=== PATIENT | female | born 1995 | race Caucasian/White ===

== ENCOUNTER → 2023-08-10 11:41 | Outpatient (CLI) | payer BC, SELFPAY ==
--- NOTE | ~2023-08-10 | US_ITS ---
EXAMINATION: US OB <=14 wk fetus w TV DATE: 08/10/2023 12:20 INDICATION: First trimester spotting. TECHNIQUE: Real-time transabdominal and transvaginal pelvic ultrasound was performed. COMPARISON: None. FINDINGS: TRANSABDOMINAL ULTRASOUND: The uterus measures 7.6 x 4.8 x 5.4 cm. TRANSVAGINAL ULTRASOUND: The endometrial complex measures 7 mm in thickness. There is no visible intr auterine gestational sac. The right ovary measures 3.9 x 1.9 x 3.1 cm. The left ovary measures 3.0 x 2.7 x 1.8 cm. There is no free fluid in the pelvis. IMPRESSION: 1. No visible intrauterine gestational sac, which may be normal in early . Spontaneous abor tion and ectopic are not excluded. Serial beta-hCGs are recommended. Reviewed, dictated and finalized at location E. GER SUSTAINABILITY IMPRESSION: 1. No visible intrauterine gestational sac, which may be normal in early pregn axel. Spontaneous and ectopic are not excluded. Serial beta- hCGs are recommended.
== END ==
PROVIDERS: PCP Obstetrics & Gynecology Gynecology; Visit Provider Obstetrics & Gynecology Gynecology
DX: O26.851 Spotting complicating pregnancy, first trimester (principal); Z3A.00 Weeks of gestation of pregnancy not specified
CPT/HCPCS: 76801; 76817

== ENCOUNTER 2023-08-13 07:48 | Outpatient (CLI) | payer BC, SELFPAY ==
[2023-08-13 08:33] LABS: Beta HCG Quantitative 10.11 mIU/ML
== END 2023-08-13 07:49 | disposition home or self-care (01) ==
PROVIDERS: PCP Obstetrics & Gynecology Gynecology; Visit Provider Obstetrics & Gynecology Gynecology
DX: O03.9 Complete or unspecified spontaneous abortion without complication (principal)
CPT/HCPCS: 36415; 84702; 86850; 86900; 86901

== ENCOUNTER 2023-12-05 08:26 | Outpatient (CLI) | payer BC, SELFPAY ==
--- NOTE | ~2023-12-05 | US_ITS ---
EXAMINATION: US OB transvaginal DATE: 12/05/2023 09:01 INDICATION: Prior spontaneous TECHNIQUE: Real-time pelvic ultrasound utilizing both a transvaginal and transabdominal probe was pe rformed. The interpreting radiologist was not present for the study. COMPARISON: None. FINDINGS: The uterus measures 10.3 x 6.0 x 6.5 cm. There is an intrauterine gestational sac. A yolk sac and fe christopher pole are identified. The crown rump length measures 8 mm, which correlates with an estimated gest ational age of 6 weeks and 5 days. heart motion is identified measuring 134 beats per minute (b pm) by M-mode Doppler. Couple small anechoic nabothian cysts at the cervix. The right ovary measures 4.2 x 2.4 x 3.8 cm. And 2.2 cm anechoic right ovarian cyst. The left ovary m easures 4.5 x 2.7 x 2.3 cm. There is no free fluid in the pelvis. IMPRESSION: 1. Single living fetus with heart rate of 134 bpm. 2. Gestational age by ultrasound of 6 weeks 5 day(s) +/- 4 day(s) with ultrasound estimated date of delivery ([facility]ICKIE) of 07/25/2024. Reviewed, dictated and finalized at location B. IMPRESSION: 1. Single living fetus with heart rate of 134 bpm. 2. Gestational age by ultrasound of 6 weeks 5 day(s) +/- 4 day(s) with ultraso und estimated date of delivery (VICKIE) of 07/25/2024.
== END 2023-12-05 08:27 ==
PROVIDERS: PCP Obstetrics & Gynecology Gynecology; Visit Provider Obstetrics & Gynecology Gynecology
DX: O26.21 Pregnancy care for patient with recurrent pregnancy loss, first trimester (principal); Z3A.00 Weeks of gestation of pregnancy not specified
CPT/HCPCS: 76817

== ENCOUNTER 2024-01-20 14:56 | Emergency (ER) | payer BC, SELFPAY ==
--- NOTE | ~2024-01-20 | US_ITS ---
LEFT LOWER EXTREMITY VENOUS ULTRASOUND Ordering provider: Trudy Diaz PA-C History: . pain in posterior thigh, 13 weeks . Comparison: None. FINDINGS: --COMMON FEMORAL: Patent and free of thrombus. Normal compressibility, phasic flow and augmentation. --PROXIMAL SUPERFICIAL FEMORAL: Patent and free of thrombus. Normal compressibility, phasic flow and augmentation. --DISTAL SUPERFICIAL FEMORAL: Patent and free of thrombus. Normal compressibility, phasic flow and au gmentation. --POPLITEAL: Patent and free of thrombus. Normal compressibility, phasic flow and augmentation. --POSTERIOR TIBIAL: Patent and free of thrombus. Normal compressibility, phasic flow and augmentation . IMPRESSION: Negative left lower extremity venous US. No deep vein thrombosis. Reviewed, dictated and finalized at location A.
[2024-01-20 14:57] VITALS: BP 122/69; PULSE 84; RESP 20; TEMP 36.4; O2SAT 100
--- NOTE | 2024-01-20 15:00 | ED.EXTPRO ---
HPI - Extremity Problem General Chief complaint: Extremity Problem,Nontraumatic Stated complaint: dvt r/o on L leg Time Seen by Provider: 01/20/24 15:59 Focused HPI:28-year-old female with reported history of cavernous hemangioma presents to the emergency department for pain to her posterior left thigh for approximately 1 week. Patient is currently 13 weeks and notified her OBGYN, , and was advised to come to the emergency department for further evaluation due to concerns for a DVT. The patient denies injury trauma to this area, overlying skin changes including bug bite, cellulitis or bruising. She denies history of DVT. She denies abdominal pain, vaginal bleeding or leakage of fluids. States her has been uncomplicated thus far. GENERAL: Well-appearing, well-nourished, and in no acute distress. HEAD: Normocephalic, atraumatic. CHEST: Clear to auscultation. ?No respiratory distress. HEART: Regular rate and rhythm.? NEURO: ?Alert and oriented x3. Patient screened in triage and initial orders placed.? ?Additional care and disposition to be based upon?diagnostic testing and treatment. History of Present Illness HPI Narrative: 28-year-old female with reported history of cavernous hemangioma presents to the emergency department for pain to her posterior left thigh for approximately 1 week. Patient is currently 13 weeks and notified her OBGYN, , and was advised to come to the emergency department for further evaluation due to concerns for a DVT. The patient denies injury trauma to this area, overlying skin changes including bug bite, cellulitis or bruising. She denies history of DVT. She denies abdominal pain, vaginal bleeding or leakage of fluids. States her has been uncomplicated thus far. Related Data Allergies Allergy/AdvReac Type Severity Reaction Status Date / Time amoxicillin Allergy Rash Verified 01/20/24 15:00 Review of Systems Review of Systems: CONSTITUTIONAL: Denies fever, chills, or sweats. EYES: Denies visual changes, redness, or discharge. ENT: Denies rhinorrhea, congestion, sore throat, or otalgia. CARDIOVASCULAR: Denies chest pain, palpitations, or edema. RESPIRATORY: Denies cough or dyspnea. GASTROINTESTINAL: Denies abdominal pain, nausea, vomiting, or diarrhea. GENITOURINARY: Denies dysuria or hematuria. SKIN: Denies rash or itching. MUSCULOSKELETAL: See HPI. NEUROLOGIC: Denies headache, numbness, or weakness. PSYCHIATRIC: Denies anxiety or depression. Exam Narrative: GENERAL: Well-appearing, well-nourished, and in no acute distress. HEAD: Normocephalic, atraumatic. NECK: Supple. CHEST: Clear to auscultation. No respiratory distress. HEART: Regular rate and rhythm. No murmur heard. Normal peripheral pulses. ABDOMEN: Soft, nontender, nondistended, normal active bowel sounds. EXTREMITIES: mild tenderness to the posterior lateral aspect of the left thigh. No skin changes including lesions, erythema, ecchymosis, nodules, areas of fluctuation or induration. No palpable cord. Remainder of lower extremity is unremarkable. No edema. DP pulse 2 +. Sensation intact. SKIN: Warm, dry, no rash. NEURO: No focal deficits. Alert and oriented x3 Course Vital Signs Vital signs: Vital Signs Temperature 97.6 F 01/20/24 14:57 Pulse Rate 84 01/20/24 14:57 Respiratory Rate 20 01/20/24 14:57 Blood Pressure 122/69 01/20/24 14:57 Pulse Oximetry 100 01/20/24 14:57 Oxygen Delivery Room Air 01/20/24 14:57 Temperature 97.6 F 01/20/24 14:57 Pulse Rate 84 01/20/24 14:57 Respiratory Rate 20 01/20/24 14:57 Blood Pressure 122/69 01/20/24 14:57 Pulse Oximetry 100 01/20/24 14:57 Oxygen Delivery Room Air 01/20/24 14:57 MDM - Extremity (Nontraumatic) MDM Narrative Medical decision making narrative: 28-year-old female who is , currently 13 weeks presents to emergency department for a focal area of
[2024-01-20 15:16] LABS: Basophils Percent Auto 0.3 % (0.2-1.2); Eosinophils Percent Auto 0.4 % (0-4.4); Hematocrit 39.1 % (37.0-47.0); Hemoglobin 13.7 g/dL (12.0-15.0); Immature Granulocyte Absolute 0.02 K/mm3 (0.00-0.031); Immature Granulocyte Percent A 0.2 % (0-0.5); Lymphocytes Absolute Auto 1.64 K/mm3 (0.9-3.2); Lymphocytes Percent Auto 17.8 % (18.3-44.2); Mean Corpuscular Hemoglobin 30.5 pg (26-34); Mean Corpuscular Volume 87.1 fl (80-100); Mean Platelet Volume 9.6 fl (7.4-10.4); Monocytes Absolute Auto 0.5 K/mm3 (0.1-0.6); Monocytes Percent Auto 5.3 % (2.6-8.5); Platelet Count Result 244 k/mm3 (150-375); Red Blood Count 4.49 M/mm3 (4.2-5.4); Red Cell Distribution Width 12.1 % (11.5-14.5); White Blood Count 9.2 K/mm3 (4.5-10.0)
[2024-01-20 15:27] LABS: Anion Gap 9 mmol/L (4-12); Blood Urea Nitrogen 11 mg/dL (7-17); Calcium 9.3 mg/dL (8.4-10.2); Carbon Dioxide 24 mmol/L (22-30); Chloride 104 mmol/L (98-107); Estimated CRCL calculation 87 ml/min; Estimated Glomerular Filt Rate > 60; Glucose 87 mg/dL (65-110); INR 0.9; Potassium 3.7 mmol/L (3.4-5.0); Prothrombin Time 12.4 Seconds (11.1-14.7); Sodium 137 mmol/L (137-145)
[2024-01-20 15:28] LABS: Partial Thromboplastin Time 26.6 Seconds (22.3-36.8)
== END 2024-01-20 16:15 | disposition home or self-care (01) ==
LOC: ANHED 16:11
PROVIDERS: Emergency Provider Physician Assistant; PCP Obstetrics & Gynecology Gynecology
DX: O99.891 Other specified diseases and conditions complicating pregnancy (principal); M79.652 Pain in left thigh; Z3A.13 13 weeks gestation of pregnancy
CPT/HCPCS: 36415; 80048; 85025; 85610; 85730; 93971; 99284